=== PATIENT | male | born 1975 | race African-American/Black ===

== ENCOUNTER 2019-10-30 12:16 | Emergency (ER) | payer OTHER ==
[2019-10-30 13:07] VITALS: BP 121/75
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
[2019-10-30] MEDS ORDERED: Silver Sulfadiazine 1%* 20 GM TOPICAL ONE (13:48)
== END 2019-10-30 14:15 | disposition home or self-care (01) ==
LOC: UCEAST 12:16
DX: T25.221A Burn of second degree of right foot, initial encounter (principal); F17.210 Nicotine dependence, cigarettes, uncomplicated; X10.2XXA Contact with fats and cooking oils, initial encounter; Y92.9 Unspecified place or not applicable; Y99.0 Civilian activity done for income or pay
CPT/HCPCS: 99213; A9270-GY; G0463